=== PATIENT | male | born 1975 | race Caucasian/White ===

== ENCOUNTER → 2020-07-06 | Outpatient (CLI) | payer BC ==
--- NOTE | 2020-07-06 11:32 | REP ---
INDICATION: PAIN IN RIGHT ELBOW. COMPARISON: None. TECHNIQUE: Four views FINDINGS: Distal humerus, proximal radius and ulna/olecranon were all unremarkable. There is no evidence of a joint effusion. There is prominent soft tissue swelling over the olecranon suggesting olecranon bursitis. This may be traumatic. Radial head and capitellum align normally. There is no osteochondral defect or loose body identified. No abnormal soft tissue calcifications are seen. IMPRESSION: Olecranon bursitis that may be traumatic or other. No abnormal calcification, foreign bodies, joint effusion, fracture or focal bone lesion. <Electronically signed by Jose Estrada > 07/06/20 [id number]
== END | disposition home or self-care (01) ==
LOC: M RAD 10:30
DX: M25.521 Pain in right elbow (principal)